=== PATIENT | male | born 1960 | race Caucasian/White ===

== ENCOUNTER 2021-08-08 12:04 | Inpatient (IN) ==
[2021-08-08 12:33] LABS: ABS Lymphocytes 1.2 10^3/ul (1.0-4.8); ABS Monocytes 0.7 10^3/ul (0-0.8); ABS Neutrophils 12.9 10^3/ul (1.5-7.7); Hematocrit 45 % (42-52); Lymphocyte % 8.1 %; Mean Corpuscular HGB Conc 34 g/dL (31-36); Mean Corpuscular Hemoglobin 30 pg (27-31); Mean Corpuscular Volume 89 fL (80-94); Mean Platelet Volume 7.9 fL (7.4-10.4); Platelet Count 191 10^3/uL (150-450); Red Blood Count 5.02 10^6 /uL (4.18-5.48); Red Cell Distribution Width 13 % (10-15); White Blood Count 14.8 10^3/uL (3.5-10.8)
[2021-08-08 12:51] LABS: Rapid COVID-19 Molecular Undetected (Undetected)
[2021-08-08 12:54] LABS: ALT 40 U/L (7-52); AST 204 U/L (13-39); Albumin/Globulin Ratio 1.6 (1-3); Alkaline Phosphatase 51 U/L (35-149); Anion Gap 5 mmol/L (2-11); Blood Urea Nitrogen 20 mg/dL (6-24); CO2 Carbon Dioxide 26 mmol/L (22-32); Calcium 8.5 mg/dL (8.6-10.3); Chloride 103 mmol/L (101-111); Globulin 2.5 g/dL (2-4); Glucose 129 mg/dL (70-100); Potassium 4.3 mmol/L (3.5-5.0); Sodium 134 mmol/L (135-145); Total Protein 6.5 g/dL (6.4-8.9); eGFR CKD-EPI 85.7 (>60)
[2021-08-08 13:14] LABS: Troponin I 26.07 ng/mL (<0.03)
[2021-08-08 13:15] LABS: INR 1.04 (0.86-1.15)
[2021-08-08] MEDS ORDERED: Morphine 2 MG/ML SYRINGE IV PRN (13:29)
[2021-08-08 13:39] LABS: Activated Partial Thrombo Time 61.2 seconds (26.0-38.0)
[2021-08-08] MEDS ORDERED: Heparin DRIP 25,000 UNITS BAG 25,000 UNITS/500 ML BAG IV SCH ×3 (13:45→14:15)
[2021-08-08] MEDS ORDERED: Heparin 5000 UNITS/ML 1 mL VIAL IV SCH (14:00)
[2021-08-08] MEDS ORDERED: Heparin 2 UNITS/ML 1000 mls 2,000 ML IV ONE (14:09)
[2021-08-08] MEDS ORDERED: fentaNYL 100 mcg/2 ml 50 MCG/ML VIAL ONE (14:09)
[2021-08-08] MEDS ORDERED: Lidocaine 1% VIAL 10 MG/ML VIAL ONE (14:09)
[2021-08-08] MEDS ORDERED: Midazolam 5 mg/5 ml VIAL 1 mg/ml 5 ml VIAL (5 mg) ONE (14:09)
[2021-08-08] MEDS ORDERED: Heparin 1,000 UNIT/ML 10 ml (10,000 UNITS) CATHLAB/DIALYSIS ONE ×2 (14:09→15:26)
[2021-08-08] MEDS ORDERED: nitroGLYCERIN DRIP 25,000 MCG/250 ML BTL ONE (14:09)
[2021-08-08] MEDS ORDERED: Iohexol 350 (CONTRAST) 200 ML MDV IV ONE ×3 (14:10→15:41)
[2021-08-08] MEDS ORDERED: niCARdipine 0.1MG/ML IVPREMIX 20 MG/200 ML BAG IV ONE (14:10)
[2021-08-08] MEDS ORDERED: NS 0.9% 1000 ml BAG 1,000 ML IV SCH (14:15)
[2021-08-08] MEDS ORDERED: Prasugrel 10 mg TAB (NF) ONE (15:06)
[2021-08-08] MEDS ORDERED: Heparin 2 UNITS/ML 1000 mls 1,000 ML IV ONE ×2 (15:40→16:10)
[2021-08-08] MEDS ORDERED: Furosemide 20 mg/2 ml IV VIAL IV ONE (17:35)
[2021-08-08] MEDS ORDERED: Albuterol/Ipratropium NEB.SOL (2.5/0.5 MG) 3 ML NEB.SOLN INH PRN (19:03)
[2021-08-09 04:49] LABS: Hematocrit 41 % (42-52); Hemoglobin 13.8 g/dL (14.0-18.0); Mean Corpuscular HGB Conc 34 g/dL (31-36); Mean Corpuscular Hemoglobin 31 pg (27-31); Mean Corpuscular Volume 91 fL (80-94); Mean Platelet Volume 8.4 fL (7.4-10.4); Platelet Count 147 10^3/uL (150-450); Red Blood Count 4.45 10^6 /uL (4.18-5.48); Red Cell Distribution Width 13 % (10-15); White Blood Count 10.5 10^3/uL (3.5-10.8)
[2021-08-09 04:58] LABS: CO2 Carbon Dioxide 20 mmol/L (22-32); Calcium 8.4 mg/dL (8.6-10.3); Chloride 104 mmol/L (101-111); Sodium 133 mmol/L (135-145)
[2021-08-09 05:04] LABS: Blood Urea Nitrogen 23 mg/dL (6-24); Cholesterol 176 mg/dL; Glucose 120 mg/dL (70-100); HDL Cholesterol 52.2 mg/dL; LDL Cholesterol 93 mg/dL; Triglycerides 154 mg/dL; eGFR CKD-EPI 84.7 (>60)
[2021-08-09 05:24] LABS: Anion Gap 9 mmol/L (2-11)
[2021-08-09 06:29] LABS: Albumin 3.7 g/dL (3.2-5.2); Albumin/Globulin Ratio 1.4 (1-3); Calcium 8.7 mg/dL (8.6-10.3); Globulin 2.6 g/dL (2-4); Potassium 3.8 mmol/L (3.5-5.0); Total Bilirubin 1.4 mg/dL (0.2-1.0); Total Protein 6.3 g/dL (6.4-8.9); eGFR CKD-EPI 83.7 (>60)
[2021-08-09] MEDS ORDERED: Furosemide 20 mg/2 ml IV VIAL IV ONE (08:40)
[2021-08-09] MEDS ORDERED: Potassium Chlor 20 meq TAB.ER PO ONE (08:41)
[2021-08-09 08:48] LABS: Magnesium 2.2 mg/dL (1.9-2.7); Phosphorus 2.6 mg/dL (2.5-5.0)
[2021-08-09] MEDS ORDERED: CMC:Prasugrel 10 mg TAB (NF) PO SCH (09:00)
[2021-08-09 09:20] LABS: Troponin I > 79.00 ng/mL (<0.03)
[2021-08-09] MEDS ORDERED: Iodixanol (CONTRAST) 320 MG/ML 100 ML SDV IV ONE (09:35)
[2021-08-09] MEDS ORDERED: Perflutren Lipid Microsphere 3 ML VIAL ONE (09:44)
[2021-08-09 14:05] VITALS: BP 119/65
[2021-08-10 09:24] LABS: Albumin 4.1 g/dL (3.2-5.2); Albumin/Globulin Ratio 1.4 (1-3); Calcium 9.3 mg/dL (8.6-10.3); Potassium 3.8 mmol/L (3.5-5.0); Total Bilirubin 1.8 mg/dL (0.2-1.0); Total Protein 7.1 g/dL (6.4-8.9); eGFR CKD-EPI 83.7 (>60)
[2021-08-10 12:36] LABS: Hematocrit 40 % (42-52); Hemoglobin 13.8 g/dL (14.0-18.0)
[2021-08-10] MEDS ORDERED: COVID-19 VACCINE, MRNA(MODERNA)/PF 100 MCG/0.5 ML IM ONE (15:00)
== END 2021-08-10 14:55 | disposition home or self-care (01) | DRG 174 ==
LOC: ED 12:04 → EDHOLD 13:29 → CHICATH 14:25 → ICU 16:35 → MEDTELE 08-09 14:27
PROVIDERS: ADMIT Internal Medicine; ATTEND Internal Medicine